=== PATIENT | female | born 1945 | race Caucasian/White ===

== ENCOUNTER 2022-12-21 14:35 | Inpatient (IN) | payer MEDICARE ==
[2022-12-21] MEDS ORDERED: Acetaminophen 650 MG Suppository PR PRN (14:44)
[2022-12-21] MEDS ORDERED: Moisturizing Cream (Eucerin) 113 GM JAR TOP PRN (14:44)
[2022-12-21] MEDS ORDERED: diphenhydrAMINE 25 MG CAP PO PRN (14:44)
[2022-12-21] MEDS ORDERED: Dextrose 5% in Water 1,000 ML IV PRN (14:44)
[2022-12-21] MEDS ORDERED: Cepastat Lozenges 1 LOZ PO PRN (14:44)
[2022-12-21] MEDS ORDERED: Artificial Tear Sol 15 ML BOT EA EYE PRN (14:44)
[2022-12-21] MEDS ORDERED: Sodium Chloride 0.65% Nasal 44 ML BOT EA NARE PRN (14:44)
[2022-12-21] MEDS ORDERED: Dextrose 50% Abboject 50 ML SYRINGE SLOW IVP PRN (14:44)
[2022-12-21] MEDS ORDERED: Ondansetron PF 4 MG/2 ML Vial IVP PRN (14:44)
[2022-12-21] MEDS ORDERED: Loratadine 10 MG TAB PO PRN (14:44)
[2022-12-21] MEDS ORDERED: HumaLOG 300 UNITS/3 ML VIAL SC PRN (14:44)
[2022-12-21] MEDS ORDERED: Lactated Ringer's 1,000 ML IV SCH (14:45)
[2022-12-21] MEDS ORDERED: Ipratropium/Albuterol 3 ML NEB NEB PRN (14:48)
[2022-12-21] MEDS: HYDROcodone/Acetaminophen 5/325 mg Tablet PO PRN ×2 (15:23→20:56)
[2022-12-21] MEDS ORDERED: Morphine 2 MG/ML VIAL SLOW IVP PRN (15:25)
[2022-12-21] MEDS ORDERED: Benzonatate 100 MG CAP PO PRN (15:31)
[2022-12-21] MEDS ORDERED: Aspirin 325 mg Enteric Coated Tablet PO SCH (16:00)
[2022-12-21] MEDS ORDERED: Losartan Potassium 50 MG TAB PO SCH (16:00)
[2022-12-21 16:39] LABS: Lactic Acid 0.9 mmol/L (0.5-2.2)
[2022-12-21] MEDS: Labetalol HCl 100 MG/20 ML VIAL SLOW IVP PRN (16:53)
[2022-12-21] MEDS: Morphine 4 MG/ML VIAL SLOW IVP PRN (16:53)
[2022-12-21 17:24] LABS: Free T4 (Free Thyroxine) 0.99 ng/dL (0.70-1.48)
[2022-12-21] MEDS ORDERED: Loperamide HCl 2 MG CAP PO PRN ×2 (19:05)
[2022-12-21] MEDS: Atorvastatin Calcium 40 MG TAB PO SCH (19:52)
[2022-12-21] MEDS: Promethazine HCl 25 MG in Sodium Chloride 0.9% 50 ML IVPB PRN (19:52)
[2022-12-21] MEDS: Carvedilol 12.5 MG TAB PO SCH (19:52)
[2022-12-21] MEDS ORDERED: Famotidine/PF 20 mg/2ml Vial SLOW IVP SCH (21:00)
[2022-12-21] MEDS: Ipratropium/Albuterol 3 ML NEB NEB SCH (22:20)
[2022-12-21] MEDS: Mometasone 100 MCG/PUFF (1 INHALER) INH SCH (22:21)
[2022-12-21] MEDS: traMADol HCl 50 MG TAB PO PRN (23:36)
[2022-12-22] MEDS: Ipratropium/Albuterol 3 ML NEB NEB SCH ×3 (01:05→12:58)
[2022-12-22] MEDS: HYDROcodone/Acetaminophen 5/325 mg Tablet PO PRN ×4 (02:42→22:09)
[2022-12-22 06:34] LABS: #Monocytes 0.9 10x3/uL (0.0-1.1); #Neutrophils 10.1 10x3/uL (1.5-8.4); %Basophils 0.2 % (0.0-2.0); %Eosinophils 0.2 % (0.0-6.0); %Lymphocytes 9.3 % (18.0-47.0); %Monocytes 7.2 % (0.0-10.0); %Neutrophils 82.8 % (40.0-75.0); Hemoglobin 7.6 g/dL (12.0-15.5); Mean Corpuscular HGB CONC 27.5 g/dL (32.0-36.0); Mean Corpuscular Hemoglobin 21.7 pg (27.0-33.0); Mean Corpuscular Volume 78.9 fl (81.6-98.3); Mean Platelet Volume 10.3 fl (7.4-10.4); Platelet Count 135 10x3/uL (150-450); RBC Distribution Width 19.3 % (11.5-14.5); White Blood Cell (WBC) Count 12.2 10x3/uL (3.5-10.5)
[2022-12-22 06:40] LABS: Anion Gap 14 mmol/L (10-20); BUN (Urea Nitrogen) 46 mg/dL (9.8-20.1); Calc. Creatinine Clearance 39 mL/min (70-130); Calcium 9.9 mg/dL (7.8-10.44); Carbon Dioxide 30 mmol/L (23-31); Cardiac Risk 2.4 (Less than 4.5); Chloride 103 mmol/L (98-107); Cholesterol 118 mg/dl (< 200 Desired); Estimated GFR 35; Glucose 131 mg/dL (83-110); HDL Cholesterol 50 mg/dL (>60 Neg Risk); LDL Cholesterol, Calculated 48 mg/dL; Potassium 4.9 mmol/L (3.5-5.1); Sodium 142 mmol/L (136-145); Triglycerides 102 mg/dL (Less than 150)
[2022-12-22] MEDS: Mometasone 100 MCG/PUFF (1 INHALER) INH SCH ×2 (07:13→19:49)
[2022-12-22] MEDS: traMADol HCl 50 MG TAB PO PRN (08:04)
[2022-12-22] MEDS: Acetaminophen 325 MG TAB PO PRN (08:07)
[2022-12-22] MEDS: Aspirin 81 mg Enteric Coated Tablet PO SCH (08:07)
[2022-12-22] MEDS: Carvedilol 12.5 MG TAB PO SCH ×2 (08:08→22:05)
[2022-12-22] MEDS: Losartan Potassium 50 MG TAB PO SCH (08:08)
[2022-12-22 12:14] LABS: Hemoglobin A1c 6.5 % (4.0-6.0)
[2022-12-22] MEDS: Dextrose 5%-Lactated Ringers 1,000 ML IV SCH (14:31)
[2022-12-22] MEDS ORDERED: Iopamidol 370 76% 100 ML VIAL ONE (15:29)
[2022-12-22] MEDS ORDERED: Promethazine HCl 25 MG/ML VIAL ONE (16:21)
[2022-12-22] MEDS: Promethazine HCl 25 MG in Sodium Chloride 0.9% 50 ML IVPB PRN (16:25)
[2022-12-22] MEDS: Morphine 4 MG/ML VIAL SLOW IVP PRN (16:26)
[2022-12-22] MEDS: Atorvastatin Calcium 40 MG TAB PO SCH (22:05)
[2022-12-22] MEDS: Famotidine/PF 20 mg/2ml Vial SLOW IVP SCH (22:06)
[2022-12-23] MEDS: Morphine 4 MG/ML VIAL SLOW IVP PRN (00:31)
[2022-12-23] MEDS: Promethazine HCl 25 MG in Sodium Chloride 0.9% 50 ML IVPB PRN ×2 (01:41→06:09)
[2022-12-23] MEDS: Dextrose 5%-Lactated Ringers 1,000 ML IV SCH (05:41)
[2022-12-23 05:46] LABS: #Monocytes 0.5 10x3/uL (0.0-1.1); #Neutrophils 10.3 10x3/uL (1.5-8.4); %Basophils 0.2 % (0.0-2.0); %Eosinophils 0.2 % (0.0-6.0); %Lymphocytes 5.1 % (18.0-47.0); %Monocytes 4.6 % (0.0-10.0); %Neutrophils 89.2 % (40.0-75.0); Hemoglobin 7.6 g/dL (12.0-15.5); Mean Corpuscular HGB CONC 27.2 g/dL (32.0-36.0); Mean Corpuscular Hemoglobin 21.8 pg (27.0-33.0); Mean Corpuscular Volume 79.9 fl (81.6-98.3); Mean Platelet Volume 10.7 fl (7.4-10.4); Platelet Count 110 10x3/uL (150-450); RBC Distribution Width 19.5 % (11.5-14.5); Red Blood Cell (RBC) Count 3.49 10x6/uL (3.90-5.03); White Blood Cell (WBC) Count 11.6 10x3/uL (3.5-10.5)
[2022-12-23 06:03] LABS: Platelet Morphology Comment Appears Decreased
[2022-12-23 06:04] LABS: Hypochromia SLIGHT = 6-15 cells (100X) (0-5/hpf)
[2022-12-23 06:05] LABS: Anisocytosis SLIGHT = 6-15 cells (100X) (0-5/hpf)
[2022-12-23 06:13] LABS: Anion Gap 19 mmol/L (10-20); BUN (Urea Nitrogen) 45 mg/dL (9.8-20.1); Calc. Creatinine Clearance 35 mL/min (70-130); Calcium 9.8 mg/dL (7.8-10.44); Carbon Dioxide 24 mmol/L (23-31); Chloride 103 mmol/L (98-107); Estimated GFR 31; Glucose 104 mg/dL (83-110); Potassium 5.3 mmol/L (3.5-5.1); Sodium 141 mmol/L (136-145)
[2022-12-23 06:32] LABS: Lactic Acid 5.4 mmol/L (0.5-2.2)
[2022-12-23] MEDS: Mometasone 100 MCG/PUFF (1 INHALER) INH SCH ×2 (07:40→18:35)
[2022-12-23] MEDS: Losartan Potassium 50 MG TAB PO SCH (08:16)
[2022-12-23] MEDS: Aspirin 81 mg Enteric Coated Tablet PO SCH (08:17)
[2022-12-23] MEDS: HYDROcodone/Acetaminophen 5/325 mg Tablet PO PRN ×2 (08:17→21:59)
[2022-12-23] MEDS: Carvedilol 12.5 MG TAB PO SCH ×2 (08:17→21:50)
[2022-12-23] MEDS: Dextrose 5 %-0.45 % NaCl 1,000 ML IV SCH ×2 (08:17→16:17)
[2022-12-23] MEDS: HumaLOG 300 UNITS/3 ML VIAL SC PRN ×2 (11:35→17:03)
[2022-12-23 13:27] LABS: Lactic Acid 2.4 mmol/L (0.5-2.2)
[2022-12-23 13:30] LABS: ALT (SGPT) 20 U/L (8-55); AST (SGOT) 51 U/L (5-34); Albumin 3.5 g/dL (3.4-4.8); Alkaline Phosphatase 60 U/L (40-110); Anion Gap 16 mmol/L (10-20); BUN (Urea Nitrogen) 53 mg/dL (9.8-20.1); Bilirubin, Direct 0.3 mg/dL (0.1-0.3); Bilirubin, Total 0.7 mg/dL (0.2-1.2); Calc. Creatinine Clearance 28 mL/min (70-130); Calcium 9.2 mg/dL (7.8-10.44); Carbon Dioxide 24 mmol/L (23-31); Chloride 104 mmol/L (98-107); Estimated GFR 24; Glucose 173 mg/dL (83-110); Iron 27 ug/dL (50-170); Iron Binding Capacity, Total 391 mcg/dL (265-497); Lipase 7 U/L (8-78); Protein, Total 6.3 g/dL (5.8-8.1); Sodium 139 mmol/L (136-145)
[2022-12-23] MEDS: metroNIDAZOLE 500 MG in Premix Bag 1 BAG IVPB SCH ×2 (13:50→21:50)
[2022-12-23] MEDS ORDERED: Clopidogrel Bisulfate 75 MG TAB PO SCH (15:30)
[2022-12-23] MEDS ORDERED: Sodium Chloride 0.9% 1,000 ML IV SCH (15:30)
[2022-12-23] MEDS: Famotidine/PF 20 mg/2ml Vial SLOW IVP SCH (21:50)
[2022-12-23] MEDS: Atorvastatin Calcium 40 MG TAB PO SCH (21:50)
[2022-12-24] MEDS: Sodium Chloride 0.9% 1,000 ML IV SCH ×2 (05:28→15:11)
[2022-12-24] MEDS: Dextrose 5 %-0.45 % NaCl 1,000 ML IV SCH ×2 (05:28→15:11)
[2022-12-24] MEDS: metroNIDAZOLE 500 MG in Premix Bag 1 BAG IVPB SCH ×3 (05:29→22:33)
[2022-12-24 05:39] LABS: #Eosinphils 0.3 10x3/uL (0.0-0.5); #Monocytes 0.6 10x3/uL (0.0-1.1); %Basophils 0.3 % (0.0-2.0); %Eosinophils 3.7 % (0.0-6.0); %Lymphocytes 8.7 % (18.0-47.0); %Monocytes 7.1 % (0.0-10.0); %Neutrophils 79.7 % (40.0-75.0); Hemoglobin 6.8 g/dL (12.0-15.5); Mean Corpuscular HGB CONC 28.3 g/dL (32.0-36.0); Mean Corpuscular Hemoglobin 21.9 pg (27.0-33.0); Mean Corpuscular Volume 77.2 fl (81.6-98.3); Mean Platelet Volume 9.9 fl (7.4-10.4); Platelet Count 104 10x3/uL (150-450); RBC Distribution Width 19.2 % (11.5-14.5); Red Blood Cell (RBC) Count 3.11 10x6/uL (3.90-5.03); White Blood Cell (WBC) Count 8.8 10x3/uL (3.5-10.5)
[2022-12-24 05:55] LABS: Lactic Acid 0.6 mmol/L (0.5-2.2)
[2022-12-24 05:58] LABS: Anion Gap 12 mmol/L (10-20); BUN (Urea Nitrogen) 59 mg/dL (9.8-20.1); Calc. Creatinine Clearance 25 mL/min (70-130); Calcium 8.9 mg/dL (7.8-10.44); Carbon Dioxide 27 mmol/L (23-31); Chloride 102 mmol/L (98-107); Estimated GFR 21; Glucose 136 mg/dL (83-110); Potassium 4.3 mmol/L (3.5-5.1); Sodium 137 mmol/L (136-145)
[2022-12-24] MEDS ORDERED: Lidocaine 1% (PF) 30 ML VIAL ONE (07:20)
[2022-12-24] MEDS ORDERED: Heparin 10,000 UNITS/ 10 ML VIAL ONE (07:21)
[2022-12-24] MEDS: Losartan Potassium 50 MG TAB PO SCH (07:47)
[2022-12-24] MEDS: Acetylcysteine 20% 200 MG/ML 30 ML VIAL PO SCH ×3 (07:47→17:35)
[2022-12-24] MEDS: Carvedilol 12.5 MG TAB PO SCH ×2 (07:47→22:33)
[2022-12-24] MEDS: Aspirin 81 mg Enteric Coated Tablet PO SCH (07:47)
[2022-12-24] MEDS: HYDROcodone/Acetaminophen 5/325 mg Tablet PO PRN ×3 (07:47→22:53)
[2022-12-24] MEDS: Clopidogrel Bisulfate 75 MG TAB PO SCH (07:47)
[2022-12-24] MEDS ORDERED: EPINEPHrine 1 MG/ML AMP IVP PRN (08:21)
[2022-12-24] MEDS: Mometasone 100 MCG/PUFF (1 INHALER) INH SCH ×2 (08:44→19:54)
[2022-12-24] MEDS ORDERED: Communication Order-Pharmacy FS SCH (09:00)
[2022-12-24 10:30] LABS: Hemoglobin 7.5 g/dL (12.0-15.5); Platelet Count 94 10x3/uL (150-450)
[2022-12-24] MEDS: Morphine 4 MG/ML VIAL SLOW IVP PRN (12:02)
[2022-12-24] MEDS ORDERED: GoLYTELY 4,000 ml Bottle PO SCH (17:00)
[2022-12-24] MEDS: Acetylcysteine 800 MG/4 ML VIAL PO SCH ×2 (17:59→22:32)
[2022-12-24] MEDS: Atorvastatin Calcium 40 MG TAB PO SCH (22:33)
[2022-12-24] MEDS: Famotidine/PF 20 mg/2ml Vial SLOW IVP SCH (22:33)
[2022-12-25] MEDS: Sodium Chloride 0.9% 1,000 ML IV SCH ×3 (02:00→14:04)
[2022-12-25 04:29] LABS: #Eosinphils 0.4 10x3/uL (0.0-0.5); #Monocytes 0.7 10x3/uL (0.0-1.1); #Neutrophils 7.2 10x3/uL (1.5-8.4); %Basophils 0.2 % (0.0-2.0); %Monocytes 8.2 % (0.0-10.0); Hemoglobin 8.3 g/dL (12.0-15.5); Mean Corpuscular Hemoglobin 22.5 pg (27.0-33.0); Mean Corpuscular Volume 77.5 fl (81.6-98.3); Mean Platelet Volume 9.3 fl (7.4-10.4); Platelet Count 116 10x3/uL (150-450); RBC Distribution Width 18.9 % (11.5-14.5); Red Blood Cell (RBC) Count 3.69 10x6/uL (3.90-5.03)
[2022-12-25 04:43] LABS: Lactic Acid 1.1 mmol/L (0.5-2.2)
[2022-12-25 04:44] LABS: Anion Gap 12 mmol/L (10-20); BUN (Urea Nitrogen) 48 mg/dL (9.8-20.1); Calc. Creatinine Clearance 36 mL/min (70-130); Calcium 8.6 mg/dL (7.8-10.44); Carbon Dioxide 23 mmol/L (23-31); Chloride 106 mmol/L (98-107); Estimated GFR 32; Glucose 143 mg/dL (83-110); Potassium 4.2 mmol/L (3.5-5.1); Sodium 137 mmol/L (136-145)
[2022-12-25] MEDS: Acetylcysteine 800 MG/4 ML VIAL PO SCH ×4 (05:00→21:20)
[2022-12-25] MEDS: metroNIDAZOLE 500 MG in Premix Bag 1 BAG IVPB SCH ×3 (06:47→21:20)
[2022-12-25] MEDS: Mometasone 100 MCG/PUFF (1 INHALER) INH SCH ×2 (08:07→20:42)
[2022-12-25] MEDS: HYDROcodone/Acetaminophen 5/325 mg Tablet PO PRN ×3 (08:41→21:19)
[2022-12-25] MEDS: Carvedilol 12.5 MG TAB PO SCH ×2 (08:42→21:20)
[2022-12-25] MEDS: Aspirin 81 mg Enteric Coated Tablet PO SCH (09:41)
[2022-12-25] MEDS: Clopidogrel Bisulfate 75 MG TAB PO SCH (09:41)
[2022-12-25] MEDS: Promethazine HCl 25 MG in Sodium Chloride 0.9% 50 ML IVPB PRN ×2 (11:31→21:48)
[2022-12-25] MEDS: Dextrose 5 %-0.45 % NaCl 1,000 ML IV SCH ×2 (11:41)
[2022-12-25] MEDS ORDERED: GoLYTELY 4,000 ml Bottle PO SCH (14:00)
[2022-12-25] MEDS: Famotidine/PF 20 mg/2ml Vial SLOW IVP SCH (21:20)
[2022-12-25] MEDS: Atorvastatin Calcium 40 MG TAB PO SCH (21:20)
[2022-12-26] MEDS: HYDROcodone/Acetaminophen 5/325 mg Tablet PO PRN ×3 (01:20→20:54)
[2022-12-26] MEDS: Sodium Chloride 0.9% 1,000 ML IV SCH ×2 (01:21→16:19)
[2022-12-26] MEDS: Acetylcysteine 800 MG/4 ML VIAL PO SCH ×4 (04:21→21:02)
[2022-12-26] MEDS: metroNIDAZOLE 500 MG in Premix Bag 1 BAG IVPB SCH ×3 (05:22→22:17)
[2022-12-26 05:32] LABS: #Eosinphils 0.3 10x3/uL (0.0-0.5); #Monocytes 0.9 10x3/uL (0.0-1.1); #Neutrophils 6.8 10x3/uL (1.5-8.4); %Basophils 0.1 % (0.0-2.0); %Eosinophils 3.7 % (0.0-6.0); %Lymphocytes 8.7 % (18.0-47.0); %Monocytes 9.7 % (0.0-10.0); %Neutrophils 77.3 % (40.0-75.0); Hemoglobin 8.1 g/dL (12.0-15.5); Mean Corpuscular HGB CONC 28.7 g/dL (32.0-36.0); Mean Corpuscular Hemoglobin 22.4 pg (27.0-33.0); Mean Corpuscular Volume 77.9 fl (81.6-98.3); Platelet Count 115 10x3/uL (150-450); RBC Distribution Width 19.2 % (11.5-14.5); Red Blood Cell (RBC) Count 3.62 10x6/uL (3.90-5.03); White Blood Cell (WBC) Count 8.7 10x3/uL (3.5-10.5)
[2022-12-26 05:44] LABS: Anion Gap 14 mmol/L (10-20); BUN (Urea Nitrogen) 31 mg/dL (9.8-20.1); Calc. Creatinine Clearance 53 mL/min (70-130); Calcium 8.7 mg/dL (7.8-10.44); Carbon Dioxide 23 mmol/L (23-31); Chloride 110 mmol/L (98-107); Estimated GFR 51; Glucose 114 mg/dL (83-110); Potassium 3.6 mmol/L (3.5-5.1); Sodium 143 mmol/L (136-145)
[2022-12-26 05:57] LABS: Anisocytosis SLIGHT = 6-15 cells (100X) (0-5/hpf)
[2022-12-26 05:58] LABS: Hypochromia SLIGHT = 6-15 cells (100X) (0-5/hpf); Microcytosis SLIGHT = 6-15 cells (100X) (0-5/hpf); Ovalocytes SLIGHT = 2-5 cells (100X) (0-1/hpf); Polychromasia SLIGHT = 2-3 cells (100X) (0-2/hpf); Tear Drops SLIGHT = 2-5 cells (100X) (0-1/hpf)
[2022-12-26 05:59] LABS: Platelet Morphology Comment Appears Decreased
[2022-12-26 06:03] LABS: Lactic Acid 0.9 mmol/L (0.5-2.2)
[2022-12-26] MEDS: Mometasone 100 MCG/PUFF (1 INHALER) INH SCH ×2 (07:55→19:10)
[2022-12-26] MEDS: Carvedilol 12.5 MG TAB PO SCH ×2 (08:08→21:05)
[2022-12-26] MEDS: Aspirin 81 mg Enteric Coated Tablet PO SCH (08:11)
[2022-12-26] MEDS: Clopidogrel Bisulfate 75 MG TAB PO SCH (08:11)
[2022-12-26] MEDS ORDERED: Fentanyl 100 MCG/2 ML VIAL ONE (13:57)
[2022-12-26] MEDS ORDERED: Lidocaine 1% PF 5 ML VIAL ONE (13:57)
[2022-12-26] MEDS ORDERED: PROPOFOL 40 ML ONE (13:57)
[2022-12-26] MEDS: Morphine 4 MG/ML VIAL SLOW IVP PRN ×2 (18:12→23:03)
[2022-12-26] MEDS ORDERED: Communication Order-Pharmacy FS SCH (18:30)
[2022-12-26] MEDS: Famotidine/PF 20 mg/2ml Vial SLOW IVP SCH (20:55)
[2022-12-26] MEDS: Atorvastatin Calcium 40 MG TAB PO SCH (20:55)
[2022-12-26] MEDS: hydrALAZINE 20 MG/ML VIAL SLOW IVP PRN (22:17)
[2022-12-27] MEDS: Aspirin 81 mg Enteric Coated Tablet PO SCH (02:05)
[2022-12-27] MEDS: Clopidogrel Bisulfate 75 MG TAB PO SCH (02:05)
[2022-12-27] MEDS: Morphine 4 MG/ML VIAL SLOW IVP PRN ×4 (04:44→20:17)
[2022-12-27] MEDS: Acetylcysteine 800 MG/4 ML VIAL PO SCH ×4 (04:52→22:27)
[2022-12-27 05:31] LABS: #Eosinphils 0.3 10x3/uL (0.0-0.5); #Monocytes 0.8 10x3/uL (0.0-1.1); #Neutrophils 8.1 10x3/uL (1.5-8.4); %Basophils 0.2 % (0.0-2.0); %Eosinophils 2.7 % (0.0-6.0); %Lymphocytes 7.1 % (18.0-47.0); %Monocytes 7.6 % (0.0-10.0); %Neutrophils 81.9 % (40.0-75.0); Hemoglobin 8.7 g/dL (12.0-15.5); Mean Corpuscular HGB CONC 29.4 g/dL (32.0-36.0); Mean Corpuscular Hemoglobin 22.8 pg (27.0-33.0); Mean Corpuscular Volume 77.7 fl (81.6-98.3); Mean Platelet Volume 9.7 fl (7.4-10.4); Platelet Count 132 10x3/uL (150-450); RBC Distribution Width 19.9 % (11.5-14.5); Red Blood Cell (RBC) Count 3.81 10x6/uL (3.90-5.03); White Blood Cell (WBC) Count 9.9 10x3/uL (3.5-10.5)
[2022-12-27 05:43] LABS: INR-International Normal Ratio 1.1; PTT 29.5 sec (22.0-33.0); Prothrombin Time 11.7 sec (9.5-12.1)
[2022-12-27 05:45] LABS: Phosphorus 1.6 mg/dL (2.3-4.7)
[2022-12-27 05:46] LABS: SARS-CoV-2 NAA Rapid Test Not Detected (NotDetected)
[2022-12-27 05:47] LABS: ALT (SGPT) 18 U/L (8-55); AST (SGOT) 31 U/L (5-34); Albumin 3.7 g/dL (3.4-4.8); Alkaline Phosphatase 61 U/L (40-110); Anion Gap 13 mmol/L (10-20); BUN (Urea Nitrogen) 21 mg/dL (9.8-20.1); Bilirubin, Total 0.5 mg/dL (0.2-1.2); Calc. Creatinine Clearance 65 mL/min (70-130); Carbon Dioxide 22 mmol/L (23-31); Chloride 112 mmol/L (98-107); Estimated GFR 65; Glucose 136 mg/dL (83-110); Magnesium 1.8 mg/dL (1.6-2.6); Potassium 3.8 mmol/L (3.5-5.1); Protein, Total 6.7 g/dL (5.8-8.1); Sodium 143 mmol/L (136-145)
[2022-12-27 05:50] LABS: Lactic Acid 0.8 mmol/L (0.5-2.2)
[2022-12-27 05:51] LABS: Anisocytosis SLIGHT = 6-15 cells (100X) (0-5/hpf); Hypochromia SLIGHT = 6-15 cells (100X) (0-5/hpf); Microcytosis SLIGHT = 6-15 cells (100X) (0-5/hpf); Platelet Morphology Comment Appears Decreased; Polychromasia SLIGHT = 2-3 cells (100X) (0-2/hpf)
[2022-12-27] MEDS: Carvedilol 12.5 MG TAB PO SCH ×2 (06:25→20:16)
[2022-12-27] MEDS: metroNIDAZOLE 500 MG in Premix Bag 1 BAG IVPB SCH ×3 (06:25→22:30)
[2022-12-27] MEDS: HYDROcodone/Acetaminophen 5/325 mg Tablet PO PRN ×3 (06:36→18:00)
[2022-12-27] MEDS ORDERED: Lidocaine 1% MPF 2 ML VIAL ONE (07:02)
[2022-12-27] MEDS ORDERED: Lidocaine 1% (PF) 30 ML VIAL ONE (07:03)
[2022-12-27] MEDS ORDERED: Heparin 10,000 UNITS/ 10 ML VIAL ONE (07:03)
[2022-12-27] MEDS ORDERED: Nitroglycerin 50 MG/250 ML BOT 0 ML ONE (07:03)
[2022-12-27] MEDS ORDERED: Adenosine 6 MG/2 ML VIAL ONE (07:04)
[2022-12-27] MEDS ORDERED: Verapamil 5 MG/2 ML VIAL ONE (07:04)
[2022-12-27] MEDS ORDERED: Sodium Chloride 0.9% 1,000 ML ONE (07:05)
[2022-12-27] MEDS: Mometasone 100 MCG/PUFF (1 INHALER) INH SCH ×2 (07:17→19:42)
[2022-12-27] MEDS ORDERED: Fentanyl 100 MCG/2 ML VIAL ONE (08:06)
[2022-12-27] MEDS ORDERED: Midazolam HCl 2 mg/2 ml Vial ONE (08:07)
[2022-12-27] MEDS ORDERED: Labetalol HCl 100 MG/20 ML VIAL ONE (08:46)
[2022-12-27] MEDS ORDERED: Iopamidol 300 61% 100 ML VIAL FS ONE (10:16)
[2022-12-27] MEDS: Sodium Chloride 0.9% 1,000 ML IV SCH ×2 (14:29→19:41)
[2022-12-27] MEDS ORDERED: Electrolyte Replacement Protocol 1 EACH FS SCH (15:50)
[2022-12-27] MEDS ORDERED: Magnesium 2 GM/50 ML(in water) 2 GM in Premix Bag 1 BAG IVPB SCH (16:15)
[2022-12-27] MEDS ORDERED: Potassium Phosphate 15 MMOL in Sodium Chloride 0.9% 250 ML 250 ML IVPB SCH (18:00)
[2022-12-27] MEDS: Atorvastatin Calcium 40 MG TAB PO SCH (20:16)
[2022-12-27] MEDS: Famotidine/PF 20 mg/2ml Vial SLOW IVP SCH (20:17)
[2022-12-28] MEDS: Morphine 4 MG/ML VIAL SLOW IVP PRN ×2 (00:56→07:35)
[2022-12-28] MEDS: Acetylcysteine 800 MG/4 ML VIAL PO SCH ×4 (03:37→22:04)
[2022-12-28 04:49] LABS: #Eosinphils 0.3 10x3/uL (0.0-0.5); #Neutrophils 7.2 10x3/uL (1.5-8.4); %Basophils 0.2 % (0.0-2.0); %Eosinophils 3.4 % (0.0-6.0); %Lymphocytes 8.8 % (18.0-47.0); %Monocytes 10.6 % (0.0-10.0); %Neutrophils 76.6 % (40.0-75.0); Hemoglobin 7.2 g/dL (12.0-15.5); Mean Corpuscular HGB CONC 28.2 g/dL (32.0-36.0); Mean Corpuscular Hemoglobin 22.8 pg (27.0-33.0); Mean Corpuscular Volume 80.7 fl (81.6-98.3); Mean Platelet Volume 9.6 fl (7.4-10.4); Platelet Count 103 10x3/uL (150-450); RBC Distribution Width 20.2 % (11.5-14.5); Red Blood Cell (RBC) Count 3.16 10x6/uL (3.90-5.03); White Blood Cell (WBC) Count 9.4 10x3/uL (3.5-10.5)
[2022-12-28 05:01] LABS: Phosphorus 2.9 mg/dL (2.3-4.7)
[2022-12-28 05:02] LABS: Anion Gap 11 mmol/L (10-20); BUN (Urea Nitrogen) 19 mg/dL (9.8-20.1); Calc. Creatinine Clearance 70 mL/min (70-130); Calcium 8.3 mg/dL (7.8-10.44); Carbon Dioxide 23 mmol/L (23-31); Chloride 115 mmol/L (98-107); Estimated GFR 72; Glucose 115 mg/dL (83-110); Magnesium 2.4 mg/dL (1.6-2.6); Potassium 4.4 mmol/L (3.5-5.1); Sodium 145 mmol/L (136-145)
[2022-12-28 05:29] LABS: Anisocytosis SLIGHT = 6-15 cells (100X) (0-5/hpf); Microcytosis SLIGHT = 6-15 cells (100X) (0-5/hpf)
[2022-12-28 05:30] LABS: Hypochromia SLIGHT = 6-15 cells (100X) (0-5/hpf); Ovalocytes SLIGHT = 2-5 cells (100X) (0-1/hpf); Platelet Morphology Comment Appears Decreased; Polychromasia SLIGHT = 2-3 cells (100X) (0-2/hpf)
[2022-12-28] MEDS: metroNIDAZOLE 500 MG in Premix Bag 1 BAG IVPB SCH ×3 (05:34→22:04)
[2022-12-28] MEDS: Sodium Chloride 0.9% 1,000 ML IV SCH ×2 (05:36→11:43)
[2022-12-28] MEDS: Mometasone 100 MCG/PUFF (1 INHALER) INH SCH ×2 (07:30→19:54)
[2022-12-28] MEDS ORDERED: Fentanyl 100 MCG/2 ML VIAL ONE (08:27)
[2022-12-28] MEDS ORDERED: DISCONTINUE PREVIOUS NARCOTIC PAIN MEDICATIONS AND BENZODIAZEPINES FS SCH (09:00)
[2022-12-28] MEDS ORDERED: Fentanyl BOLUS 250 ML IVPB PRN (09:00)
[2022-12-28] MEDS ORDERED: Lorazepam 2 MG/ML VIAL SLOW IVP PRN (09:00)
[2022-12-28] MEDS ORDERED: FENTANYL 2,000MCG/100-0.9%NACL 100 ML IVPB SCH (09:00)
[2022-12-28] MEDS ORDERED: Morphine 2 MG/ML VIAL SLOW IVP PRN (09:00)
[2022-12-28] MEDS ORDERED: Propofol BOLUS 1,000 MG/100 ML VIAL IV PRN (09:00)
[2022-12-28 09:09] LABS: Hemoglobin 7.8 g/dL (12.0-15.5); Mean Corpuscular Hemoglobin 22.4 pg (27.0-33.0); RBC Distribution Width 20.5 % (11.5-14.5); Red Blood Cell (RBC) Count 3.48 10x6/uL (3.90-5.03); White Blood Cell (WBC) Count 18.3 10x3/uL (3.5-10.5)
[2022-12-28 09:10] LABS: #Basophils 0.1 10x3/uL (0.0-0.2); #Eosinphils 0.6 10x3/uL (0.0-0.5); #Monocytes 2.1 10x3/uL (0.0-1.1); #Neutrophils 10.4 10x3/uL (1.5-8.4); %Basophils 0.5 % (0.0-2.0); %Lymphocytes 25.5 % (18.0-47.0); %Monocytes 11.6 % (0.0-10.0); %Neutrophils 56.9 % (40.0-75.0); Mean Platelet Volume 10.1 fl (7.4-10.4); Platelet Count 122 10x3/uL (150-450)
[2022-12-28] MEDS ORDERED: NOREPINEPHRINE 8 MG/250 ML-D5W 250 ML ONE (09:12)
[2022-12-28 09:24] LABS: ALT (SGPT) 14 U/L (8-55); AST (SGOT) 23 U/L (5-34); Albumin 3.4 g/dL (3.4-4.8); Alkaline Phosphatase 61 U/L (40-110); Anion Gap 15 mmol/L (10-20); BUN (Urea Nitrogen) 19 mg/dL (9.8-20.1); Bilirubin, Total 0.3 mg/dL (0.2-1.2); Calc. Creatinine Clearance 62 mL/min (70-130); Calcium 8.7 mg/dL (7.8-10.44); Carbon Dioxide 20 mmol/L (23-31); Chloride 115 mmol/L (98-107); Estimated GFR 62; Globulin 2.6 g/dL (2.4-3.5); Glucose 158 mg/dL (83-110); Potassium 5.7 mmol/L (3.5-5.1); Sodium 144 mmol/L (136-145)
[2022-12-28] MEDS ORDERED: DOPamine 400 MG/D5W 250 ML 250 ML ONE (09:28)
[2022-12-28 09:36] LABS: Platelet Morphology Comment Appears Increased
[2022-12-28 09:37] LABS: Anisocytosis SLIGHT = 6-15 cells (100X) (0-5/hpf); Elliptocytes SLIGHT = 2-5 cells (100X) (0-1/hpf); Hypochromia SLIGHT = 6-15 cells (100X) (0-5/hpf); Macrocytosis SLIGHT = 6-15 cells (100X) (0-5/hpf); Microcytosis SLIGHT = 6-15 cells (100X) (0-5/hpf); Polychromasia SLIGHT = 2-3 cells (100X) (0-2/hpf)
[2022-12-28] MEDS ORDERED: Calcium Gluc 4.6 MEQ/10 ML (100 MG/ML) SLOW IVP SCH (09:45)
[2022-12-28] MEDS ORDERED: Dextrose 50% Abboject 50 ML SYRINGE SLOW IVP SCH (09:48)
[2022-12-28] MEDS ORDERED: Insulin Regular 300 UNITS/3 ML VIAL IVP SCH (10:00)
[2022-12-28 10:21] LABS: Troponin I 0.498 ng/mL (< 0.028)
[2022-12-28] MEDS ORDERED: Iopamidol 370 76% 100 ML VIAL ONE (10:30)
[2022-12-28 10:33] LABS: Hemoglobin 5.8 g/dL (12.0-15.5)
[2022-12-28] MEDS: Propofol 1,000 MG/100 ML VIAL IV PRN (10:46)
[2022-12-28 11:04] LABS: Lactic Acid 1.3 mmol/L (0.5-2.2)
[2022-12-28 11:10] LABS: Base Excess (BEa) -3.7 mEq/L (-2.0 to +3.0); CO2 Tension 43.6 mmHg (35.0-45.0); Calcium, Ionized (arterial) 1.12 mmol/L (1.12-1.30); Carboxyhemoglobin (COHb) 1.3 gm% (0.0-3.0); Hemoglobin (Hb) 5.9 g/dL (12.0-16.0); O2 Tension (PaO2), arterial 64.9 mmHg (> 70.0); Potassium - ABG Lab 4.1 mmol/L (3.70-5.30); Puncture Site RRA; pH, Arterial 7.32 (7.35-7.45)
[2022-12-28] MEDS: Carvedilol 12.5 MG TAB PO SCH (11:41)
[2022-12-28] MEDS ORDERED: Vancomycin 1.5 GRAM/300 ML BAG 1.5 GM in Premix Bag 1 BAG IVPB SCH (12:00)
[2022-12-28] MEDS: Clopidogrel Bisulfate 75 MG TAB PO SCH (12:08)
[2022-12-28] MEDS: Aspirin 81 mg Enteric Coated Tablet PO SCH (12:08)
[2022-12-28] MEDS: Famotidine/PF 20 mg/2ml Vial SLOW IVP SCH ×2 (12:16→20:56)
[2022-12-28 13:25] LABS: Potassium 4.2 mmol/L (3.5-5.1)
[2022-12-28 14:36] LABS: Troponin I 0.503 ng/mL (< 0.028)
[2022-12-28 18:44] LABS: Hemoglobin 7.7 g/dL (12.0-15.5)
[2022-12-28] MEDS ORDERED: Sodium Bicarb 50 MEQ/50 ML Abboject 8.4% SYRINGE ONE (20:35)
[2022-12-28] MEDS ORDERED: EPINEPHrine 1 MG/10 ML Abboject SYRINGE ONE (20:35)
[2022-12-28] MEDS: Atorvastatin Calcium 40 MG TAB PO SCH (20:56)
[2022-12-28] MEDS: Cefepime 2 GM in Sodium Chloride 0.9% 100 ML IVPB SCH (20:56)
[2022-12-29] MEDS: Propofol 1,000 MG/100 ML VIAL IV PRN (01:00)
[2022-12-29 03:49] LABS: #Eosinphils 0.1 10x3/uL (0.0-0.5); #Monocytes 0.8 10x3/uL (0.0-1.1); #Neutrophils 9.4 10x3/uL (1.5-8.4); %Basophils 0.3 % (0.0-2.0); %Eosinophils 1.1 % (0.0-6.0); %Lymphocytes 6.6 % (18.0-47.0); %Monocytes 7.1 % (0.0-10.0); %Neutrophils 84.3 % (40.0-75.0); Hemoglobin 7.7 g/dL (12.0-15.5); Mean Corpuscular HGB CONC 31.3 g/dL (32.0-36.0); Mean Corpuscular Hemoglobin 25.1 pg (27.0-33.0); Mean Corpuscular Volume 80.1 fl (81.6-98.3); Mean Platelet Volume 9.4 fl (7.4-10.4); Platelet Count 86 10x3/uL (150-450); RBC Distribution Width 18.3 % (11.5-14.5); Red Blood Cell (RBC) Count 3.07 10x6/uL (3.90-5.03); White Blood Cell (WBC) Count 11.1 10x3/uL (3.5-10.5)
[2022-12-29 04:06] LABS: ALT (SGPT) 11 U/L (8-55); AST (SGOT) 19 U/L (5-34); Albumin 2.8 g/dL (3.4-4.8); Alkaline Phosphatase 43 U/L (40-110); Anion Gap 12 mmol/L (10-20); BUN (Urea Nitrogen) 20 mg/dL (9.8-20.1); Bilirubin, Total 0.6 mg/dL (0.2-1.2); Calc. Creatinine Clearance 56 mL/min (70-130); Calcium 8.2 mg/dL (7.8-10.44); Carbon Dioxide 22 mmol/L (23-31); Chloride 117 mmol/L (98-107); Estimated GFR 55; Glucose 117 mg/dL (83-110); Magnesium 2.2 mg/dL (1.6-2.6); Potassium 4.1 mmol/L (3.5-5.1); Protein, Total 4.8 g/dL (5.8-8.1); Sodium 147 mmol/L (136-145)
[2022-12-29 04:07] LABS: Phosphorus 2.2 mg/dL (2.3-4.7)
[2022-12-29] MEDS: Acetylcysteine 800 MG/4 ML VIAL PO SCH ×4 (04:30→21:20)
[2022-12-29] MEDS: metroNIDAZOLE 500 MG in Premix Bag 1 BAG IVPB SCH ×3 (05:15→22:09)
[2022-12-29 05:33] LABS: Actual Bicarbonate (HCO3a) 21.7 mEq/L (22-28); Base Excess (BEa) -2.4 mEq/L (-2.0 to +3.0); CO2 Tension 34.4 mmHg (35.0-45.0); Calcium, Ionized (arterial) 1.15 mmol/L (1.12-1.30); Puncture Site RRA; pH, Arterial 7.42 (7.35-7.45)
[2022-12-29] MEDS: Mometasone 100 MCG/PUFF (1 INHALER) INH SCH ×2 (06:55→19:41)
[2022-12-29] MEDS: Sodium Chloride 0.9% 1,000 ML IV SCH (07:27)
[2022-12-29] MEDS: Famotidine/PF 20 mg/2ml Vial SLOW IVP SCH (08:01)
[2022-12-29] MEDS: Cefepime 2 GM in Sodium Chloride 0.9% 100 ML IVPB SCH ×2 (08:01→21:20)
[2022-12-29] MEDS ORDERED: Famotidine/PF 20 mg/2ml Vial SLOW IVP SCH (09:00)
[2022-12-29] MEDS: Ipratropium/Albuterol 3 ML NEB IPPB SCH ×2 (10:15→19:28)
[2022-12-29] MEDS ORDERED: Dextrose 5% in Water 1,000 ML IV SCH (11:15)
[2022-12-29] MEDS ORDERED: Lorazepam 2 MG/ML VIAL SLOW IVP SCH (11:30)
[2022-12-29] MEDS ORDERED: Furosemide 20 MG/2 ML VIAL SLOW IVP SCH (11:30)
[2022-12-29] MEDS: Vancomycin HCl 750 MG in Sodium Chloride 0.9% 250 ML 250 ML IVPB SCH (11:38)
[2022-12-29] MEDS ORDERED: Dexmedetomidine In 0.9 % NaCl 100 ML ONE (11:53)
[2022-12-29 15:28] LABS: Hemoglobin 7.1 g/dL (12.0-15.5)
[2022-12-29] MEDS ORDERED: Cefepime 2 GM VIAL ONE (21:19)
[2022-12-29] MEDS: Atorvastatin Calcium 40 MG TAB PO SCH (21:20)
[2022-12-29 23:03] LABS: Hemoglobin 7.7 g/dL (12.0-15.5)
[2022-12-30] MEDS: Ipratropium/Albuterol 3 ML NEB IPPB SCH ×5 (02:35→23:21)
[2022-12-30 03:39] LABS: #Eosinphils 0.2 10x3/uL (0.0-0.5); #Monocytes 0.9 10x3/uL (0.0-1.1); #Neutrophils 7.4 10x3/uL (1.5-8.4); %Basophils 0.3 % (0.0-2.0); %Eosinophils 1.8 % (0.0-6.0); %Lymphocytes 8.2 % (18.0-47.0); %Monocytes 9.3 % (0.0-10.0); %Neutrophils 79.8 % (40.0-75.0); Mean Corpuscular HGB CONC 30.6 g/dL (32.0-36.0); Mean Corpuscular Hemoglobin 24.9 pg (27.0-33.0); Mean Corpuscular Volume 81.5 fl (81.6-98.3); Mean Platelet Volume 9.5 fl (7.4-10.4); Platelet Count 91 10x3/uL (150-450); RBC Distribution Width 19.1 % (11.5-14.5); Red Blood Cell (RBC) Count 2.81 10x6/uL (3.90-5.03); White Blood Cell (WBC) Count 9.3 10x3/uL (3.5-10.5)
[2022-12-30 03:41] LABS: ALT (SGPT) 11 U/L (8-55); AST (SGOT) 25 U/L (5-34); Albumin 2.8 g/dL (3.4-4.8); Alkaline Phosphatase 96 U/L (40-110); Anion Gap 12 mmol/L (10-20); BUN (Urea Nitrogen) 20 mg/dL (9.8-20.1); Bilirubin, Total 0.7 mg/dL (0.2-1.2); Calc. Creatinine Clearance 58 mL/min (70-130); Calcium 8.2 mg/dL (7.8-10.44); Carbon Dioxide 24 mmol/L (23-31); Chloride 117 mmol/L (98-107); Estimated GFR 57; Globulin 2.2 g/dL (2.4-3.5); Glucose 122 mg/dL (83-110); Potassium 3.8 mmol/L (3.5-5.1); Sodium 149 mmol/L (136-145)
[2022-12-30] MEDS: Acetylcysteine 800 MG/4 ML VIAL PO SCH ×4 (04:54→21:27)
[2022-12-30] MEDS: metroNIDAZOLE 500 MG in Premix Bag 1 BAG IVPB SCH ×3 (05:33→21:30)
[2022-12-30] MEDS: Mometasone 100 MCG/PUFF (1 INHALER) INH SCH ×2 (06:30→23:15)
[2022-12-30] MEDS: Dexmedetomidine In 0.9 % NaCl 400 MCG in Premix Bag 1 BAG IVPB SCH ×2 (08:34→20:07)
[2022-12-30] MEDS: Cefepime 2 GM in Sodium Chloride 0.9% 100 ML IVPB SCH ×2 (08:34→20:01)
[2022-12-30] MEDS: Lisinopril 5 MG TAB PO SCH (08:34)
[2022-12-30] MEDS: Pantoprazole 40 MG VIAL IVP SCH (08:34)
[2022-12-30] MEDS ORDERED: Famotidine/PF 20 mg/2ml Vial SLOW IVP SCH (09:00)
[2022-12-30] MEDS ORDERED: Dextrose 5% in Water 1,000 ML IV SCH (10:30)
[2022-12-30 11:13] LABS: Vancomycin, Trough 11.9 ug/mL
[2022-12-30] MEDS: Vancomycin HCl 750 MG in Sodium Chloride 0.9% 250 ML 250 ML IVPB SCH (11:28)
[2022-12-30 14:35] LABS: Anion Gap 12 mmol/L (10-20); BUN (Urea Nitrogen) 19 mg/dL (9.8-20.1); Calc. Creatinine Clearance 64 mL/min (70-130); Calcium 8.1 mg/dL (7.8-10.44); Carbon Dioxide 23 mmol/L (23-31); Chloride 116 mmol/L (98-107); Estimated GFR 64; Glucose 124 mg/dL (83-110); Potassium 3.8 mmol/L (3.5-5.1); Sodium 147 mmol/L (136-145)
[2022-12-30] MEDS: hydrALAZINE 20 MG/ML VIAL SLOW IVP PRN (17:36)
[2022-12-30] MEDS: Acetaminophen 325 MG TAB PO PRN (18:13)
[2022-12-30] MEDS: Atorvastatin Calcium 40 MG TAB PO SCH (20:01)
[2022-12-31] MEDS: Dexmedetomidine In 0.9 % NaCl 400 MCG in Premix Bag 1 BAG IVPB SCH ×3 (02:17→18:09)
[2022-12-31 03:37] LABS: #Eosinphils 0.1 10x3/uL (0.0-0.5); #Monocytes 0.7 10x3/uL (0.0-1.1); #Neutrophils 7.9 10x3/uL (1.5-8.4); %Basophils 0.2 % (0.0-2.0); %Lymphocytes 7.3 % (18.0-47.0); %Monocytes 7.4 % (0.0-10.0); %Neutrophils 83.6 % (40.0-75.0); Hemoglobin 7.2 g/dL (12.0-15.5); Mean Corpuscular HGB CONC 30.6 g/dL (32.0-36.0); Mean Corpuscular Hemoglobin 25.2 pg (27.0-33.0); Mean Corpuscular Volume 82.2 fl (81.6-98.3); Mean Platelet Volume 9.5 fl (7.4-10.4); Platelet Count 95 10x3/uL (150-450); RBC Distribution Width 19.9 % (11.5-14.5); Red Blood Cell (RBC) Count 2.86 10x6/uL (3.90-5.03); White Blood Cell (WBC) Count 9.4 10x3/uL (3.5-10.5)
[2022-12-31 03:41] LABS: Phosphorus 2.3 mg/dL (2.3-4.7)
[2022-12-31 03:49] LABS: ALT (SGPT) 14 U/L (8-55); AST (SGOT) 20 U/L (5-34); Alkaline Phosphatase 90 U/L (40-110); Anion Gap 11 mmol/L (10-20); BUN (Urea Nitrogen) 22 mg/dL (9.8-20.1); Bilirubin, Total 0.7 mg/dL (0.2-1.2); Calc. Creatinine Clearance 63 mL/min (70-130); Carbon Dioxide 22 mmol/L (23-31); Chloride 115 mmol/L (98-107); Estimated GFR 63; Glucose 136 mg/dL (83-110); Magnesium 2.1 mg/dL (1.6-2.6); Potassium 3.9 mmol/L (3.5-5.1); Sodium 144 mmol/L (136-145)
[2022-12-31] MEDS: Ipratropium/Albuterol 3 ML NEB IPPB SCH ×6 (04:16→23:44)
[2022-12-31] MEDS: Acetylcysteine 800 MG/4 ML VIAL PO SCH ×4 (04:24→22:23)
[2022-12-31] MEDS: metroNIDAZOLE 500 MG in Premix Bag 1 BAG IVPB SCH ×3 (06:06→22:22)
[2022-12-31] MEDS: Mometasone 100 MCG/PUFF (1 INHALER) INH SCH ×2 (06:59→21:11)
[2022-12-31] MEDS: Cefepime 2 GM in Sodium Chloride 0.9% 100 ML IVPB SCH ×2 (07:52→20:08)
[2022-12-31] MEDS: Pantoprazole 40 MG VIAL IVP SCH (07:52)
[2022-12-31] MEDS: Lisinopril 5 MG TAB PO SCH (07:52)
[2022-12-31] MEDS: Acetaminophen 325 MG TAB PO PRN ×5 (08:56→23:32)
[2022-12-31] MEDS: hydrALAZINE 20 MG/ML VIAL SLOW IVP PRN (09:05)
[2022-12-31 10:23] VITALS: BMI 35.4
[2022-12-31] MEDS: Vancomycin HCl 750 MG in Sodium Chloride 0.9% 250 ML 250 ML IVPB SCH (12:15)
[2022-12-31] MEDS: Labetalol HCl 100 MG/20 ML VIAL SLOW IVP PRN (12:34)
[2022-12-31] MEDS: oxyCODONE 5 MG TAB PO PRN ×3 (13:07→23:32)
[2022-12-31] MEDS: Atorvastatin Calcium 40 MG TAB PO SCH ×2 (20:08→20:36)
[2023-01-01] MEDS: Dexmedetomidine In 0.9 % NaCl 400 MCG in Premix Bag 1 BAG IVPB SCH ×2 (01:30→08:30)
[2023-01-01] MEDS: Ipratropium/Albuterol 3 ML NEB IPPB SCH ×6 (03:55→23:22)
[2023-01-01 04:54] LABS: Anion Gap 11 mmol/L (10-20); BUN (Urea Nitrogen) 25 mg/dL (9.8-20.1); Calc. Creatinine Clearance 58 mL/min (70-130); Calcium 8.2 mg/dL (7.8-10.44); Carbon Dioxide 23 mmol/L (23-31); Chloride 116 mmol/L (98-107); Estimated GFR 58; Glucose 127 mg/dL (83-110); Potassium 3.9 mmol/L (3.5-5.1); Sodium 146 mmol/L (136-145)
[2023-01-01] MEDS: Acetylcysteine 800 MG/4 ML VIAL PO SCH ×4 (04:57→21:07)
[2023-01-01 05:08] LABS: #Eosinphils 0.2 10x3/uL (0.0-0.5); #Neutrophils 8.4 10x3/uL (1.5-8.4); %Basophils 0.2 % (0.0-2.0); %Lymphocytes 9.8 % (18.0-47.0); %Monocytes 9.1 % (0.0-10.0); %Neutrophils 78.2 % (40.0-75.0); Mean Corpuscular HGB CONC 29.4 g/dL (32.0-36.0); Mean Platelet Volume 9.8 fl (7.4-10.4); Platelet Count 125 10x3/uL (150-450); RBC Distribution Width 21.2 % (11.5-14.5); White Blood Cell (WBC) Count 10.7 10x3/uL (3.5-10.5)
[2023-01-01 05:10] LABS: Anisocytosis SLIGHT = 6-15 cells (100X) (0-5/hpf); Basophilic Stippling SLIGHT = 1-2 cells (100X) (None Seen); Hypochromia SLIGHT = 6-15 cells (100X) (0-5/hpf); Platelet Morphology Comment Appears Decreased
[2023-01-01] MEDS: metroNIDAZOLE 500 MG in Premix Bag 1 BAG IVPB SCH ×3 (05:28→22:57)
[2023-01-01] MEDS: oxyCODONE 5 MG TAB PO PRN ×4 (05:29→22:57)
[2023-01-01] MEDS: Acetaminophen 325 MG TAB PO PRN ×5 (05:29→22:59)
[2023-01-01] MEDS: Mometasone 100 MCG/PUFF (1 INHALER) INH SCH ×2 (07:49→20:57)
[2023-01-01] MEDS: Pantoprazole 40 MG VIAL IVP SCH (08:11)
[2023-01-01] MEDS: Lisinopril 10 MG TAB PO SCH (08:11)
[2023-01-01] MEDS: Cefepime 2 GM in Sodium Chloride 0.9% 100 ML IVPB SCH ×2 (08:11→21:07)
[2023-01-01] MEDS: Amlodipine 5 MG TAB PO SCH (08:11)
[2023-01-01 12:04] LABS: Vancomycin, Trough 14.3 ug/mL
[2023-01-01] MEDS: Vancomycin HCl 750 MG in Sodium Chloride 0.9% 250 ML 250 ML IVPB SCH (12:39)
[2023-01-01] MEDS: Lidocaine 5% Patch TD SCH (15:45)
[2023-01-01] MEDS ORDERED: Nitroglycerin 0.4 MG TAB (25 Tab Bottle) SL SCH (18:00)
[2023-01-01] MEDS: Calcium Carbonate 500 MG ChewTAB PO PRN (18:40)
[2023-01-01] MEDS: Atorvastatin Calcium 40 MG TAB PO SCH (19:50)
[2023-01-02] MEDS: Acetaminophen 325 MG TAB PO PRN ×2 (02:35→05:02)
[2023-01-02] MEDS: Transdermal Patch Removal TOP SCH (03:41)
[2023-01-02] MEDS: Acetylcysteine 800 MG/4 ML VIAL PO SCH ×2 (03:55→09:24)
[2023-01-02] MEDS: Ipratropium/Albuterol 3 ML NEB IPPB SCH ×6 (03:59→23:10)
[2023-01-02 04:20] LABS: Platelet Count 126 10x3/uL (150-450)
[2023-01-02 04:21] LABS: #Eosinphils 0.2 10x3/uL (0.0-0.5); #Neutrophils 7.4 10x3/uL (1.5-8.4); %Basophils 0.3 % (0.0-2.0); %Eosinophils 2.4 % (0.0-6.0); %Monocytes 10.3 % (0.0-10.0); %Neutrophils 77.9 % (40.0-75.0); Mean Corpuscular HGB CONC 29.3 g/dL (32.0-36.0); Mean Corpuscular Hemoglobin 25.5 pg (27.0-33.0); Mean Corpuscular Volume 86.9 fl (81.6-98.3); Mean Platelet Volume 9.1 fl (7.4-10.4); RBC Distribution Width 21.4 % (11.5-14.5); Red Blood Cell (RBC) Count 2.75 10x6/uL (3.90-5.03); White Blood Cell (WBC) Count 9.5 10x3/uL (3.5-10.5)
[2023-01-02 04:25] LABS: Anion Gap 9 mmol/L (10-20); BUN (Urea Nitrogen) 21 mg/dL (9.8-20.1); Calc. Creatinine Clearance 58 mL/min (70-130); Calcium 8.4 mg/dL (7.8-10.44); Carbon Dioxide 23 mmol/L (23-31); Chloride 117 mmol/L (98-107); Estimated GFR 58; Glucose 126 mg/dL (83-110); Sodium 145 mmol/L (136-145)
[2023-01-02] MEDS: oxyCODONE 5 MG TAB PO PRN ×4 (05:02→23:11)
[2023-01-02] MEDS: metroNIDAZOLE 500 MG in Premix Bag 1 BAG IVPB SCH ×2 (05:03→14:35)
[2023-01-02] MEDS: Calcium Carbonate 500 MG ChewTAB PO PRN (05:37)
[2023-01-02] MEDS: Mometasone 100 MCG/PUFF (1 INHALER) INH SCH ×2 (07:26→18:30)
[2023-01-02] MEDS: Lisinopril 10 MG TAB PO SCH (08:01)
[2023-01-02] MEDS: Cefepime 2 GM in Sodium Chloride 0.9% 100 ML IVPB SCH (08:01)
[2023-01-02] MEDS: Carvedilol 6.25 MG TAB PO SCH ×2 (08:02→18:11)
[2023-01-02] MEDS: Amlodipine 5 MG TAB PO SCH (08:02)
[2023-01-02] MEDS: Pantoprazole 40 MG VIAL IVP SCH (08:02)
[2023-01-02 10:36] LABS: Troponin I 0.109 ng/mL (< 0.028)
[2023-01-02] MEDS ORDERED: Lorazepam 2 MG/ML VIAL SLOW IVP PRN (12:18)
[2023-01-02] MEDS: Vancomycin HCl 750 MG in Sodium Chloride 0.9% 250 ML 250 ML IVPB SCH (12:41)
[2023-01-02] MEDS: Lidocaine 5% Patch TD SCH (14:35)
[2023-01-02] MEDS: Atorvastatin Calcium 40 MG TAB PO SCH (20:35)
[2023-01-02] MEDS: Cefuroxime 250 MG TAB PO SCH (20:35)
[2023-01-02] MEDS: Labetalol HCl 100 MG/20 ML VIAL SLOW IVP PRN (22:17)
[2023-01-03] MEDS: Transdermal Patch Removal TOP SCH (02:53)
[2023-01-03] MEDS: Ipratropium/Albuterol 3 ML NEB IPPB SCH ×6 (03:00→22:50)
[2023-01-03 04:46] LABS: Hemoglobin 8.4 g/dL (12.0-15.5); Mean Corpuscular HGB CONC 28.9 g/dL (32.0-36.0); Mean Corpuscular Hemoglobin 25.4 pg (27.0-33.0); Mean Corpuscular Volume 87.9 fl (81.6-98.3); Mean Platelet Volume 9.8 fl (7.4-10.4); Platelet Count 156 10x3/uL (150-450); RBC Distribution Width 22.3 % (11.5-14.5); Red Blood Cell (RBC) Count 3.31 10x6/uL (3.90-5.03)
[2023-01-03 04:55] LABS: Anion Gap 13 mmol/L (10-20); BUN (Urea Nitrogen) 22 mg/dL (9.8-20.1); Calc. Creatinine Clearance 59 mL/min (70-130); Calcium 9.3 mg/dL (7.8-10.44); Carbon Dioxide 21 mmol/L (23-31); Chloride 118 mmol/L (98-107); Estimated GFR 58; Glucose 122 mg/dL (83-110); Potassium 4.3 mmol/L (3.5-5.1); Sodium 148 mmol/L (136-145)
[2023-01-03 05:27] LABS: #Basophils 0.1 10x3/uL (0.0-0.2); #Eosinphils 0.2 10x3/uL (0.0-0.5); #Monocytes 1.3 10x3/uL (0.0-1.1); #Neutrophils 12.6 10x3/uL (1.5-8.4); %Basophils 0.5 % (0.0-2.0); %Eosinophils 1.1 % (0.0-6.0); %Monocytes 8.6 % (0.0-10.0); %Neutrophils 81.8 % (40.0-75.0)
[2023-01-03] MEDS: oxyCODONE 5 MG TAB PO PRN ×3 (05:32→20:27)
[2023-01-03] MEDS: Mometasone 100 MCG/PUFF (1 INHALER) INH SCH ×2 (08:03→20:36)
[2023-01-03] MEDS: Pantoprazole 40 MG VIAL IVP SCH (09:08)
[2023-01-03] MEDS: Acetaminophen 325 MG TAB PO PRN ×3 (09:09→18:33)
[2023-01-03] MEDS: Lisinopril 10 MG TAB PO SCH (09:09)
[2023-01-03] MEDS: Carvedilol 12.5 MG TAB PO SCH ×2 (09:09→16:19)
[2023-01-03] MEDS: Amlodipine 5 MG TAB PO SCH (09:09)
[2023-01-03] MEDS: Cefuroxime 250 MG TAB PO SCH ×2 (09:13→20:23)
[2023-01-03] MEDS: Carvedilol 6.25 MG TAB PO SCH (09:31)
[2023-01-03] MEDS: Lidocaine 5% Patch TD SCH (14:04)
[2023-01-03] MEDS ORDERED: Dextrose 5% in Water 1,000 ML IV SCH (17:30)
[2023-01-03] MEDS: Atorvastatin Calcium 40 MG TAB PO SCH (20:23)
[2023-01-04] MEDS: Ipratropium/Albuterol 3 ML NEB IPPB SCH ×6 (02:40→22:43)
[2023-01-04] MEDS: Transdermal Patch Removal TOP SCH (03:31)
[2023-01-04 04:27] LABS: #Eosinphils 0.3 10x3/uL (0.0-0.5); #Monocytes 1.2 10x3/uL (0.0-1.1); %Basophils 0.3 % (0.0-2.0); %Eosinophils 2.2 % (0.0-6.0); %Lymphocytes 6.6 % (18.0-47.0); %Monocytes 8.4 % (0.0-10.0); %Neutrophils 80.9 % (40.0-75.0); Hemoglobin 8.3 g/dL (12.0-15.5); Mean Corpuscular HGB CONC 29.3 g/dL (32.0-36.0); Mean Corpuscular Hemoglobin 25.6 pg (27.0-33.0); Mean Corpuscular Volume 87.3 fl (81.6-98.3); Platelet Count 175 10x3/uL (150-450); RBC Distribution Width 22.6 % (11.5-14.5); Red Blood Cell (RBC) Count 3.24 10x6/uL (3.90-5.03); White Blood Cell (WBC) Count 14.8 10x3/uL (3.5-10.5)
[2023-01-04] MEDS: Acetaminophen 325 MG TAB PO PRN ×2 (04:37→08:11)
[2023-01-04 04:42] LABS: Albumin 3.3 g/dL (3.4-4.8); Anion Gap 11 mmol/L (10-20); BUN (Urea Nitrogen) 22 mg/dL (9.8-20.1); BUN/Creatinine Ratio 21.57; Calc. Creatinine Clearance 57 mL/min (70-130); Calcium 9.1 mg/dL (7.8-10.44); Carbon Dioxide 23 mmol/L (23-31); Chloride 115 mmol/L (98-107); Estimated GFR 56; Glucose 145 mg/dL (83-110); Phosphorus 1.6 mg/dL (2.3-4.7); Potassium 4.1 mmol/L (3.5-5.1); Sodium 145 mmol/L (136-145)
[2023-01-04 04:49] LABS: Anisocytosis MODERATE=16-30 cells (100X) (0-5/hpf); Hypochromia SLIGHT = 6-15 cells (100X) (0-5/hpf)
[2023-01-04 04:50] LABS: Platelet Morphology Comment Appears Adequate; Polychromasia SLIGHT = 2-3 cells (100X) (0-2/hpf)
[2023-01-04] MEDS: oxyCODONE 5 MG TAB PO PRN (05:06)
[2023-01-04] MEDS: Mometasone 100 MCG/PUFF (1 INHALER) INH SCH ×2 (07:58→20:21)
[2023-01-04] MEDS: Carvedilol 12.5 MG TAB PO SCH ×2 (08:11→16:43)
[2023-01-04] MEDS: Lisinopril 10 MG TAB PO SCH (08:11)
[2023-01-04] MEDS: Pantoprazole 40 MG VIAL IVP SCH (08:11)
[2023-01-04] MEDS: Amlodipine 5 MG TAB PO SCH (08:11)
[2023-01-04] MEDS ORDERED: Ibuprofen 600 MG TAB PO PRN (09:30)
[2023-01-04] MEDS: Cefuroxime 250 MG TAB PO SCH ×2 (09:47→20:21)
[2023-01-04] MEDS: PHOS-NAK 1 PKT PACK PO SCH ×2 (09:53→21:10)
[2023-01-04] MEDS: Lidocaine 5% Patch TD SCH (15:19)
[2023-01-04] MEDS: Atorvastatin Calcium 40 MG TAB PO SCH (20:21)
[2023-01-04] MEDS: Gabapentin 100 MG CAP PO SCH (20:21)
[2023-01-05] MEDS: Transdermal Patch Removal TOP SCH (02:08)
[2023-01-05] MEDS: Ipratropium/Albuterol 3 ML NEB IPPB SCH ×5 (02:39→20:12)
[2023-01-05 04:07] LABS: Platelet Count 150 10x3/uL (150-450)
[2023-01-05 04:08] LABS: #Eosinphils 0.3 10x3/uL (0.0-0.5); #Neutrophils 10.1 10x3/uL (1.5-8.4); %Basophils 0.2 % (0.0-2.0); %Eosinophils 2.4 % (0.0-6.0); %Monocytes 7.9 % (0.0-10.0); %Neutrophils 81.3 % (40.0-75.0); Hemoglobin 7.8 g/dL (12.0-15.5); Mean Corpuscular HGB CONC 29.1 g/dL (32.0-36.0); Mean Corpuscular Hemoglobin 25.7 pg (27.0-33.0); Mean Corpuscular Volume 88.2 fl (81.6-98.3); Mean Platelet Volume 10.4 fl (7.4-10.4); RBC Distribution Width 23.4 % (11.5-14.5); Red Blood Cell (RBC) Count 3.04 10x6/uL (3.90-5.03); White Blood Cell (WBC) Count 12.4 10x3/uL (3.5-10.5)
[2023-01-05 04:23] LABS: Anion Gap 12 mmol/L (10-20); BUN (Urea Nitrogen) 22 mg/dL (9.8-20.1); Calc. Creatinine Clearance 64 mL/min (70-130); Calcium 9.2 mg/dL (7.8-10.44); Carbon Dioxide 23 mmol/L (23-31); Chloride 116 mmol/L (98-107); Estimated GFR 65; Glucose 135 mg/dL (83-110); Magnesium 2.2 mg/dL (1.6-2.6); Phosphorus 2.5 mg/dL (2.3-4.7); Potassium 4.8 mmol/L (3.5-5.1); Sodium 146 mmol/L (136-145)
[2023-01-05] MEDS: Acetaminophen 325 MG TAB PO PRN (07:57)
[2023-01-05] MEDS: Pantoprazole 40 MG VIAL IVP SCH (07:58)
[2023-01-05] MEDS: Cefuroxime 250 MG TAB PO SCH ×2 (07:58→21:10)
[2023-01-05] MEDS: Amlodipine 5 MG TAB PO SCH (07:58)
[2023-01-05] MEDS: oxyCODONE 5 MG TAB PO PRN ×2 (07:58→21:11)
[2023-01-05] MEDS: Lisinopril 10 MG TAB PO SCH (07:58)
[2023-01-05] MEDS: Carvedilol 12.5 MG TAB PO SCH ×2 (07:58→16:32)
[2023-01-05] MEDS ORDERED: Dextrose 5% in Water 1,000 ML IV SCH (11:45)
[2023-01-05] MEDS: Mometasone 100 MCG/PUFF (1 INHALER) INH SCH ×2 (12:25→20:15)
[2023-01-05] MEDS: Lidocaine 5% Patch TD SCH (15:16)
[2023-01-05] MEDS ORDERED: Chlorothiazide 50 MG/ML Oral Suspension PO SCH (21:00)
[2023-01-05] MEDS: Gabapentin 100 MG CAP PO SCH (21:10)
[2023-01-05] MEDS: Atorvastatin Calcium 40 MG TAB PO SCH (21:11)
[2023-01-05] MEDS: Meloxicam 7.5 MG TAB PO PRN (21:28)
[2023-01-05] MEDS: Chlorothiazide 50 MG/ML Oral Suspension PO SCH (22:41)
[2023-01-06] MEDS: Transdermal Patch Removal TOP SCH (02:49)
[2023-01-06] MEDS: Ipratropium/Albuterol 3 ML NEB IPPB SCH ×7 (03:17→22:30)
[2023-01-06 04:19] LABS: #Eosinphils 0.3 10x3/uL (0.0-0.5); #Monocytes 0.8 10x3/uL (0.0-1.1); #Neutrophils 8.3 10x3/uL (1.5-8.4); %Basophils 0.3 % (0.0-2.0); %Eosinophils 2.8 % (0.0-6.0); %Lymphocytes 9.3 % (18.0-47.0); %Monocytes 7.8 % (0.0-10.0); %Neutrophils 78.5 % (40.0-75.0); Hemoglobin 7.7 g/dL (12.0-15.5); Mean Corpuscular HGB CONC 28.8 g/dL (32.0-36.0); Mean Corpuscular Hemoglobin 26.1 pg (27.0-33.0); Mean Corpuscular Volume 90.5 fl (81.6-98.3); Mean Platelet Volume 9.6 fl (7.4-10.4); Platelet Count 149 10x3/uL (150-450); RBC Distribution Width 23.9 % (11.5-14.5); Red Blood Cell (RBC) Count 2.95 10x6/uL (3.90-5.03); White Blood Cell (WBC) Count 10.6 10x3/uL (3.5-10.5)
[2023-01-06 04:27] LABS: Anion Gap 10 mmol/L (10-20); BUN (Urea Nitrogen) 23 mg/dL (9.8-20.1); Calc. Creatinine Clearance 60 mL/min (70-130); Calcium 9.1 mg/dL (7.8-10.44); Carbon Dioxide 26 mmol/L (23-31); Chloride 113 mmol/L (98-107); Estimated GFR 59; Glucose 141 mg/dL (83-110); Sodium 145 mmol/L (136-145)
[2023-01-06] MEDS: Meloxicam 7.5 MG TAB PO PRN (05:50)
[2023-01-06] MEDS: oxyCODONE 5 MG TAB PO PRN ×3 (05:50→20:12)
[2023-01-06] MEDS: Mometasone 100 MCG/PUFF (1 INHALER) INH SCH ×2 (07:05→19:13)
[2023-01-06] MEDS: Chlorothiazide 50 MG/ML Oral Suspension PO SCH (08:19)
[2023-01-06] MEDS: Cefuroxime 250 MG TAB PO SCH ×2 (08:19→20:10)
[2023-01-06] MEDS: Pantoprazole 40 MG VIAL IVP SCH (08:20)
[2023-01-06] MEDS: Acetaminophen 325 MG TAB PO PRN ×3 (08:20→20:12)
[2023-01-06] MEDS: Lisinopril 10 MG TAB PO SCH (08:20)
[2023-01-06] MEDS: Amlodipine 5 MG TAB PO SCH (08:20)
[2023-01-06] MEDS: Carvedilol 12.5 MG TAB PO SCH ×2 (08:20→16:17)
[2023-01-06] MEDS: HumaLOG 300 UNITS/3 ML VIAL SC PRN (12:42)
[2023-01-06] MEDS: Lidocaine 5% Patch TD SCH (15:20)
[2023-01-06] MEDS: Atorvastatin Calcium 40 MG TAB PO SCH (20:09)
[2023-01-06] MEDS: Gabapentin 100 MG CAP PO SCH (20:10)
[2023-01-07] MEDS: Ipratropium/Albuterol 3 ML NEB IPPB SCH ×6 (02:36→22:58)
[2023-01-07] MEDS: Transdermal Patch Removal TOP SCH (03:28)
[2023-01-07 04:57] LABS: Mean Platelet Volume 10.7 fl (7.4-10.4); Platelet Count 129 10x3/uL (150-450)
[2023-01-07 04:58] LABS: #Eosinphils 0.2 10x3/uL (0.0-0.5); #Monocytes 0.6 10x3/uL (0.0-1.1); #Neutrophils 6.1 10x3/uL (1.5-8.4); %Basophils 0.1 % (0.0-2.0); %Lymphocytes 9.8 % (18.0-47.0); %Monocytes 8.1 % (0.0-10.0); %Neutrophils 77.8 % (40.0-75.0); Hemoglobin 7.3 g/dL (12.0-15.5); Mean Corpuscular HGB CONC 28.5 g/dL (32.0-36.0); Mean Corpuscular Volume 91.1 fl (81.6-98.3); RBC Distribution Width 24.5 % (11.5-14.5); Red Blood Cell (RBC) Count 2.81 10x6/uL (3.90-5.03); White Blood Cell (WBC) Count 7.8 10x3/uL (3.5-10.5)
[2023-01-07 05:04] LABS: Anion Gap 11 mmol/L (10-20); BUN (Urea Nitrogen) 24 mg/dL (9.8-20.1); Calc. Creatinine Clearance 52 mL/min (70-130); Calcium 8.9 mg/dL (7.8-10.44); Carbon Dioxide 25 mmol/L (23-31); Chloride 113 mmol/L (98-107); Estimated GFR 50; Glucose 126 mg/dL (83-110); Potassium 4.1 mmol/L (3.5-5.1); Sodium 145 mmol/L (136-145)
[2023-01-07] MEDS: Acetaminophen 325 MG TAB PO PRN (05:49)
[2023-01-07] MEDS: oxyCODONE 5 MG TAB PO PRN (05:50)
[2023-01-07] MEDS: Mometasone 100 MCG/PUFF (1 INHALER) INH SCH ×2 (06:55→18:59)
[2023-01-07] MEDS: Gabapentin 100 MG CAP PO SCH ×3 (08:31→21:46)
[2023-01-07] MEDS: Amlodipine 5 MG TAB PO SCH (08:34)
[2023-01-07] MEDS: Lisinopril 10 MG TAB PO SCH (08:34)
[2023-01-07] MEDS: Cefuroxime 250 MG TAB PO SCH ×2 (08:34→21:46)
[2023-01-07] MEDS: Carvedilol 12.5 MG TAB PO SCH ×2 (08:35→17:43)
[2023-01-07] MEDS: Pantoprazole 40 MG VIAL IVP SCH (08:35)
[2023-01-07] MEDS: Lidocaine 5% Patch TD SCH (15:49)
[2023-01-07] MEDS: Atorvastatin Calcium 40 MG TAB PO SCH (21:47)
[2023-01-08] MEDS: Ipratropium/Albuterol 3 ML NEB IPPB SCH ×4 (02:38→14:30)
[2023-01-08] MEDS: oxyCODONE 5 MG TAB PO PRN (03:10)
[2023-01-08] MEDS: Transdermal Patch Removal TOP SCH (03:12)
[2023-01-08 05:07] LABS: #Eosinphils 0.3 10x3/uL (0.0-0.5); #Monocytes 0.7 10x3/uL (0.0-1.1); #Neutrophils 6.6 10x3/uL (1.5-8.4); %Basophils 0.2 % (0.0-2.0); %Eosinophils 3.5 % (0.0-6.0); %Lymphocytes 8.6 % (18.0-47.0); %Monocytes 7.8 % (0.0-10.0); %Neutrophils 78.1 % (40.0-75.0); Anion Gap 13 mmol/L (10-20); BUN (Urea Nitrogen) 27 mg/dL (9.8-20.1); Calc. Creatinine Clearance 49 mL/min (70-130); Calcium 8.9 mg/dL (7.8-10.44); Carbon Dioxide 23 mmol/L (23-31); Chloride 112 mmol/L (98-107); Estimated GFR 46; Glucose 139 mg/dL (83-110); Hemoglobin 7.5 g/dL (12.0-15.5); Mean Corpuscular Hemoglobin 25.9 pg (27.0-33.0); Mean Corpuscular Volume 92.4 fl (81.6-98.3); Mean Platelet Volume 10.1 fl (7.4-10.4); Platelet Count 139 10x3/uL (150-450); Potassium 4.1 mmol/L (3.5-5.1); Sodium 144 mmol/L (136-145); White Blood Cell (WBC) Count 8.5 10x3/uL (3.5-10.5)
[2023-01-08] MEDS: Mometasone 100 MCG/PUFF (1 INHALER) INH SCH (07:00)
[2023-01-08] MEDS: Gabapentin 100 MG CAP PO SCH ×2 (08:50→14:35)
[2023-01-08] MEDS: Amlodipine 5 MG TAB PO SCH (08:51)
[2023-01-08] MEDS: Lisinopril 10 MG TAB PO SCH (08:51)
[2023-01-08] MEDS: Carvedilol 12.5 MG TAB PO SCH (08:51)
[2023-01-08] MEDS: Pantoprazole 40 MG VIAL IVP SCH (08:52)
[2023-01-08] MEDS: Acetaminophen 325 MG TAB PO PRN (12:12)
[2023-01-08] MEDS: Lidocaine 5% Patch TD SCH (14:36)
[2023-01-08 16:57] VITALS: BP 139/74; TEMP 98.4
== END 2023-01-08 17:00 | DRG 391 ==
LOC: INTOOBSV 14:35 → CSHTELE 14:35 → OBSVTOIN 12-22 14:01 → CSHIMCU 12-28 09:09 → CSHTELE 01-05 12:16
PROVIDERS: ADMIT Family Medicine; ATTEND Internal Medicine
PROC: 30233N1 Transfusion of Nonautologous Red Blood Cells into Peripheral Vein, Percutaneous Approach (ICD-10-PCS; 2022-12-24)
PROC: 0DB78ZX Excision of Stomach, Pylorus, Via Natural or Artificial Opening Endoscopic, Diagnostic (ICD-10-PCS; principal; 2022-12-26)
PROC: 0DJD8ZZ Inspection of Lower Intestinal Tract, Via Natural or Artificial Opening Endoscopic (ICD-10-PCS; 2022-12-26)
PROC: B4101ZZ Fluoroscopy of Abdominal Aorta using Low Osmolar Contrast (ICD-10-PCS; 2022-12-27)
PROC: B4181ZZ Fluoroscopy of Bilateral Renal Arteries using Low Osmolar Contrast (ICD-10-PCS; 2022-12-27)
PROC: B41B1ZZ Fluoroscopy of Other Intra-Abdominal Arteries using Low Osmolar Contrast (ICD-10-PCS; 2022-12-27)
PROC: 5A1945Z Respiratory Ventilation, 24-96 Consecutive Hours (ICD-10-PCS; 2022-12-28)
PROC: 0BH17EZ Insertion of Endotracheal Airway into Trachea, Via Natural or Artificial Opening (ICD-10-PCS; 2022-12-28)
PROC: 3E033XZ Introduction of Vasopressor into Peripheral Vein, Percutaneous Approach (ICD-10-PCS; 2022-12-28)
PROC: 5A09457 Assistance with Respiratory Ventilation, 24-96 Consecutive Hours, Continuous Positive Airway Pressure (ICD-10-PCS; 2022-12-29)
PROC: 5A0945A Assistance with Respiratory Ventilation, 24-96 Consecutive Hours, High Flow/Velocity Cannula (ICD-10-PCS; 2022-12-31)
DX: R10.9 Unspecified abdominal pain (principal); I46.9 Cardiac arrest, cause unspecified; J96.21 Acute and chronic respiratory failure with hypoxia; J69.0 Pneumonitis due to inhalation of food and vomit; N17.9 Acute kidney failure, unspecified; E87.0 Hyperosmolality and hypernatremia; D61.818 Other pancytopenia; I70.1 Atherosclerosis of renal artery; E03.9 Hypothyroidism, unspecified; I12.9 Hypertensive chronic kidney disease with stage 1 through stage 4 chronic kidney disease, or unspecified chronic kidney disease; E11.22 Type 2 diabetes mellitus with diabetic chronic kidney disease; N18.9 Chronic kidney disease, unspecified; J44.9 Chronic obstructive pulmonary disease, unspecified; D63.1 Anemia in chronic kidney disease; D69.6 Thrombocytopenia, unspecified; D50.9 Iron deficiency anemia, unspecified; I77.1 Stricture of artery; K29.70 Gastritis, unspecified, without bleeding; K64.8 Other hemorrhoids; K57.30 Diverticulosis of large intestine without perforation or abscess without bleeding; Z20.822 Contact with and (suspected) exposure to COVID-19; M53.86 Other specified dorsopathies, lumbar region; T42.75XA Adverse effect of unspecified antiepileptic and sedative-hypnotic drugs, initial encounter; T40.605A Adverse effect of unspecified narcotics, initial encounter; Z90.710 Acquired absence of both cervix and uterus; Z98.890 Other specified postprocedural states; Z88.0 Allergy status to penicillin; Z95.1 Presence of aortocoronary bypass graft; Z88.8 Allergy status to other drugs, medicaments and biological substances; Z87.891 Personal history of nicotine dependence; Z79.899 Other long term (current) drug therapy
CPT/HCPCS: 36245; 36252; 36415; 36416; 36430; 36600; 71045; 71275; 72131; 74018; 74174; 74177; 75726; 75774; 76999; 80048; 80053; 80061; 80069; 80076; 80202; 82248; 82274; 82728; 82805; 83010; 83036; 83540; 83550; 83605; 83690; 83735; 84100; 84439; 84481; 84484; 85025; 85046; 85379; 85610; 85730; 86850; 86900; 86901; 87040; 87086; 87811; 88305; 88342; 93005; 93010; 93306; 93970; 93975; 94002; 94003; 94640; 94660; 94664; 94760; 96372; 96374; 96375; 96376; 99152; 99153; C1760; C1769; C1894; C9113; G0378; J0132; J0153; J0171; J0360; J0692; J1265; J1644; J1650; J1940; J1956; J2001; J2060; J2250; J2270; J2272; J2405; J2550; J2597; J2704; J3010; J3370; J3475; J3490; J7042; J7050; J7070; J7120; J7620; P9016; Q9967; S0028; U0002